=== PATIENT | female | born 1945 | race Caucasian/White ===

== ENCOUNTER 2019-05-27 05:30 | Day surgery (SDC) | payer MEDICARE ==
[~2019-05-27] VITALS: Ht 172.7 cm; Wt 70.9 kg
[~2019-05-27 05:30] MED LIST: AMLO-150 PO; CHLO25TA PO
[2019-05-27 06:17] VITALS: BP 164/91
[2019-05-27] MEDS ORDERED: LACTATED RINGERS 1,000 ML IV SCH ×2 (06:20→09:48)
[2019-05-27] MEDS ORDERED: INDIGO CARMINE 0.8%, 5ML ONE (06:48)
[2019-05-27] MEDS ORDERED: THROMBIN 5,000 UNIT VIAL TP ONE (06:48)
[2019-05-27] MEDS ORDERED: BUPIVACAINE/PF 0.25% ONE ×2 (06:48→08:30)
[2019-05-27] MEDS ORDERED: EPINEPHRINE 1 MG/ML, 1ML ONE (06:48)
[2019-05-27] MEDS ORDERED: NEOMY/POLYMYXIN B GU IRR. 1 ML ONE (06:48)
[2019-05-27] MEDS ORDERED: MIDAZOLAM 1 MG/ML, 2ML ONE (07:22)
[2019-05-27] MEDS ORDERED: ROCURONIUM 10MG/ML,5ML ONE (07:23)
[2019-05-27] MEDS ORDERED: FENTANYL PF 250 MCG/5ML ONE (07:23)
[2019-05-27] MEDS ORDERED: SUCCINYLCHOLINE 20 MG/ML, 10ML ONE (07:24)
[2019-05-27] MEDS ORDERED: PROPOFOL 10 MG/ML, 20ML ONE (07:25)
[2019-05-27] MEDS ORDERED: DEXAMETHASONE 4 MG/ML, 1ML ONE ×2 (07:25)
[2019-05-27] MEDS ORDERED: LIDOCAINE GEL 2%, 5ML ONE (07:27)
[2019-05-27] MEDS ORDERED: GABAPENTIN 300 MG CAPSULE PO ONE (07:30)
[2019-05-27] MEDS ORDERED: SCOPOLAMINE PATCH, 1.5MG PATCH.TD72 TD ONE (07:30)
[2019-05-27] MEDS ORDERED: ACETAMINOPHEN 500 MG TABLET PO ONE (07:30)
[2019-05-27] MEDS ORDERED: CEFOTETAN 2 GM ONE (07:38)
[2019-05-27] MEDS ORDERED: SUGAMMADEX 200 MG/2 ML IVPush ONE (07:38)
[2019-05-27] MEDS ORDERED: MEPERIDINE/PF 25MG/ML,1ML IVPush PRN (08:30)
[2019-05-27] MEDS ORDERED: ALBUTEROL SULFATE 2.5 MG/3 ML NPPB PRN (08:30)
[2019-05-27] MEDS ORDERED: HALOPERIDOL 5 MG/ML IV PRN (08:30)
[2019-05-27] MEDS ORDERED: OXYcodone 5 MG/5 ML ORAL.SOL UDC PO PRN ×2 (08:30→10:00)
[2019-05-27] MEDS ORDERED: PROMETHAZINE 12.5 MG SUPP PR PRN (08:30)
[2019-05-27] MEDS ORDERED: DIAZEPAM 5 MG/ML, 2ML IVPush PRN (08:30)
[2019-05-27] MEDS ORDERED: LABETALOL 5MG/ML, 20ML IV PRN (08:30)
[2019-05-27] MEDS ORDERED: EPHEDRINE 50 MG/ML, 1ML IVPush PRN (08:30)
[2019-05-27] MEDS ORDERED: ONDANSETRON 2MG/ML, 2ML IV PRN (08:30)
[2019-05-27] MEDS ORDERED: hydrALAzine 20 MG/ML, 1ML IV PRN (08:30)
[2019-05-27] MEDS ORDERED: FENTANYL PF 100 MCG/2ML IV PRN (08:30)
[2019-05-27] MEDS ORDERED: HYDROmorphone 2 MG/ML, 1ML IVPush PRN ×2 (08:30→10:00)
[2019-05-27] MEDS ORDERED: PROMETHAZINE 25 MG/ML, 1ML IV PRN (08:30)
[2019-05-27] MEDS ORDERED: ONDANSETRON ODT 8 MG PO PRN (08:30)
[2019-05-27] MEDS ORDERED: MIDAZOLAM 1 MG/ML, 2ML IV PRN (08:30)
[2019-05-27] MEDS ORDERED: FENTANYL PF 100 MCG/2ML ONE (09:23)
[2019-05-27] MEDS ORDERED: ONDANSETRON 2MG/ML, 2ML ONE (09:23)
[2019-05-27] MEDS ORDERED: PROMETHAZINE 12.5 MG SUPP PR ONE (10:00)
[2019-05-27] MEDS ORDERED: HYDROcodone/APAP 5/325 TABLET PO PRN (10:00)
[2019-05-27] MEDS ORDERED: ONDANSETRON 2MG/ML, 2ML IVPush PRN (10:00)
[2019-05-27] MEDS ORDERED: IBUPROFEN 600 MG TABLET PO PRN (10:00)
== END 2019-05-27 14:00 | disposition home or self-care (01) ==
LOC: OR 05:30
PROVIDERS: ATTEND Obstetrics & Gynecology Female Pelvic Medicine and Reconstructive Surgery
DX: N99.3 Prolapse of vaginal vault after hysterectomy (principal); N39.3 Stress incontinence (female) (male); I10 Essential (primary) hypertension; R15.9 Full incontinence of feces; Z72.89 Other problems related to lifestyle; Z79.899 Other long term (current) drug therapy; Z88.0 Allergy status to penicillin; Z88.2 Allergy status to sulfonamides; Z91.041 Radiographic dye allergy status; Z90.722 Acquired absence of ovaries, bilateral; Z90.79 Acquired absence of other genital organ(s); Z98.890 Other specified postprocedural states; Z83.3 Family history of diabetes mellitus; Z82.49 Family history of ischemic heart disease and other diseases of the circulatory system; Z82.0 Family history of epilepsy and other diseases of the nervous system
CPT/HCPCS: 57288; 57425; C1771; C1781; J0171; J0330; J1100; J2250; J2405; J2704; J3010; J3490; J7120